=== PATIENT | male | born 1990 | race Hispanic/Latino ===

== ENCOUNTER → 2017-04-16 | Day surgery (SDC) | payer OTHER, SELFPAY ==
[~2017-04-16] MED LIST: Acetaminophen 1,000 MG in Premix Bag 1 BAG IVPB SCH; Bupivacaine PF 0.5% 30 ML VIAL ONE; Fentanyl 250 MCG/5 ML VIAL ONE; Glycopyrrolate 0.2 MG/ML 5 ML SYRINGE ONE; ISOVUE-370 76%-LOCM 1 ML ONE; Ketorolac Tromethamine 30 MG/ML VIAL ONE; Lidocaine 2% PF 10 ML AMP (For Epidural Use) ONE; Lidocaine 2% w/Epinephrine 1:200K 20 ML VIAL ONE; Meperidine HCl/PF 25 MG/ML VIAL ONE; Midazolam HCl 2 mg/2 ml Vial ONE; Propofol 200 MG/20 ML VIAL ONE; ceFOXitin 1 GM VIAL ONE
[2017-04-16 17:24] LABS: #Lymphocytes 0.8 thou/uL (1.20-3.40); #Monocytes 0.7 thou/uL (0.11-0.59); #Neutrophils 13.6 thou/uL (1.40-6.50); %Basophils 0.1 % (0.0-1.0); %Eosinophils 0.1 % (0.0-10.0); %Lymphocytes 5.2 % (21.0-51.0); %Monocytes 4.5 % (0.0-10.0); Hematocrit 47.8 % (42.0-52.0); Mean Platelet Volume 10.2 fL (7.4-10.4); Red Blood Cell (RBC) Count 5.32 mill/uL (4.70-6.10); White Blood Cell (WBC) Count 15.1 thou/uL (4.8-10.8)
[2017-04-16 17:24] LABS: Bilirubin Negative (Negative); Blood, Urine Negative (Negative); Glucose, Urine (Dipstick) Negative (Negative); Ketone, Urine 15 mg/dL (Negative); Nitrite Negative (Negative); Protein, Urine (Dipstick) Trace mg/dL (Neg-Trace); Urobilinogen 0.2 mg/dL (0.2-1.0)
[2017-04-16 17:46] LABS: ALT (SGPT) 282 U/L (8-55); AST (SGOT) 85 U/L (5-34); Alkaline Phosphatase 90 U/L (40-150); Anion Gap 13 mmol/L (10-20); BUN (Urea Nitrogen) 11 mg/dL (8.9-20.6); Bilirubin, Total 1.2 mg/dL (0.2-1.2); Calc. Creatinine Clearance 0 mL/min (70-130); Calcium 9.7 mg/dL (7.8-10.44); Carbon Dioxide 26 mmol/L (22-29); Chloride 103 mmol/L (98-107); Estimated GFR-MDRD Greater than 90; Globulin 3.7 g/dL (2.4-3.5); Protein, Total 8.2 g/dL (6.0-8.3)
--- NOTE | 2017-04-16 18:04 | HP ---
HISTORY OF PRESENT ILLNESS: This is a 27-year-old male, who works for a [employer] company. He had a cute onset at 4:00 a.m. of abdominal pain about 14 hours ago. Pain is generalized epigastric and lo calizing to his right lower quadrant. He suffered nausea, anorexia, increased pain with movement. He presents to the emergency room, seen and evaluated. His white count is 15,000, hemoglobin 16. U rinalysis unremarkable. ALLERGIES: None. TOBACCO: One or two cigarettes occasionally a day. ALCOHOL: Socially, rarely, not daily. PAST MEDICAL HISTORY: Noncontributory. PAST SURGICAL HISTORY: Noncontributory. REVIEW OF SYSTEM: Noncontributory. SOCIAL HISTORY: The patient is . PHYSICAL EXAMINATION: HEAD, EARS, NOSE, AND THROAT: Unremarkable. LUNGS: Clear to auscultation. CARDIAC: Regular rate and rhythm without murmur or gallop. ABDOMEN: Soft, tenderness in right lower quadrant with positive Rovsing sign. EXTREMITIES: Unremarkable. ASSESSMENT AND PLAN: History and exam consistent with appendicitis. Recommend laparoscopic video a ppendectomy. Risk of infection, bleeding, reoperation, and open procedure discussed. He consents. We will verify over the CAT scan. Initially, we were not going to do a CAT scan, but it was ordere d and he went for the CAT scan soon and inspected before to be canceled. Await CAT scan verificatio n, plan laparoscopic video appendectomy.
--- NOTE | 2017-04-16 19:57 | CT ---
CONTRAST ENHANCED CT IMAGES ABDOMEN AND PELVIS: 04/16/17 HISTORY: 27-year-old with abdominal pain. Axial images are obtained from the dome of the diaphragm through the pubic symphysis. IV contrast wa s given. Unfortunately, oral contrast was not given. This does decrease the sensitivity for the dete ction of pathology. The lung bases are unremarkable. No evidence of free intraperitoneal air seen. There is hepatic steatosis noted. The spleen is unremarkable. The pancreas is unremarkable. There is a soft tissue mass measuring 2.9 x 3.2 x 2.9 cm just superior to the body of the pancreas a nd superior to the SMA and celiac origins in the retroperitoneum. This may represent enlarged lymph node. Further workup using elective pre and postcontrast enhanced MRI may be of use to further juma cterize this well circumscribed mass. No dilated loops of small bowel seen. There appears to be an approximately 13 mm tubular structure in the right lower quadrant compatible with a dilated appendix. Unfortunately oral contrast was not given to help determine whether this w as definitively the appendix but as it appears to be in the correct location, I suspect it is a dila rivka and inflamed appendix. The rest of the abdomen and pelvis is unremarkable. IMPRESSION: 1. Findings concerning for acute appendicitis. 2. Retroperitoneal upper abdominal mass. Further workup using pre and postcontrast enhanced MRI images of the abdomen is recommended electively. POS: LAURA
--- NOTE | 2017-04-18 07:16 | OP ---
DATE OF SURGERY: 04/16/2017 PREOPERATIVE DIAGNOSIS: Acute appendicitis. POSTOPERATIVE DIAGNOSIS: Acute appendicitis. PROCEDURE PERFORMED: Laparoscopic video appendectomy. SURGEON: Dr. Zafar Mcguire. ANESTHESIA: General. Local 0.5% Marcaine with epinephrine. DESCRIPTION OF PROCEDURE: Patient was taken to the operating room where under general anesthesia, a bdomen was prepared with chloraprep, draped in routine fashion. Local anesthetic infiltrated into s kin and subcutaneous tissue about each port site. Villarreal catheter placed at the beginning of the pro cedure and removed at the end. A 0.5% Marcaine with epinephrine, 30 mL, mixed with 1% Xylocaine wit h epinephrine, 30 mL, mixture used. Infraumbilical incision was made and pneumoperitoneum to 15 mmH g obtained with the Veress needle, replacing it with a 5 port, video laparoscope was inserted. Righ t lateral subcostal incision was made and a [address] Suprapubic incision made and a [address] aced[address] Mesoappendix was taken down with the LigaSure. The stump of the appendix identified, dividin g the appendiceal stump at the cecum with the Endo-SOCO blue load stapler. Appendix removed with 12 port and submitted to pathology. Suprapubic fascia approximated with 0 Vicryl GraNee needle under l aparoscopic visualization. Pericecal area irrigated. Irrigant evacuated. Good hemostasis noted. Irrigant and pneumoperitoneum evacuated. All instruments removed and all skin incisions approximate d with interrupted subdermal 4-0 Monocryl and DermaGlue applied. Villarreal catheter was removed at the end of the procedure. Patient tolerated the procedure well. The appendix submitted to pathology.
== END ==
LOC: ERS 16:30 → SDC/OP 18:00
PROVIDERS: ATTEND Specialist
PROC: 0DTJ4ZZ Resection of Appendix, Percutaneous Endoscopic Approach (ICD-10-PCS; principal; 2017-04-16)
DX: K35.80 Unspecified acute appendicitis (principal); F17.210 Nicotine dependence, cigarettes, uncomplicated
CPT/HCPCS: 74177; 80053; 81003; 85025; 88304; 96360; J0131; J0694; J1885; J2001; J2175; J2250; J2704; J3010; J7050; S0020